=== PATIENT | male | born 1955 | race Caucasian/White ===

== ENCOUNTER 2023-11-06 09:51 | Outpatient (OUT) | payer MEDICARE, SELFPAY ==
--- NOTE | 2023-11-06 10:40 | P.GSHP_ITS ---
History of Present Illness History of Present Illness Chief complaint: LEFT KIDNEY STONE Narrative: Patient presents for preadmission testing. The patient states he has a long history of kidney stones and had a follow-up recently with a KUB that demonstrated a left-sided stone. He states he is virtually having no symptoms related to the stone. He has not had any dysuria, hematuria, flank pain, abdominal pain, nausea, vomiting or any other complaints. Review of Systems ROS Narrative REVIEW OF SYSTEMS: Negative except as stated in HPI, ten or more systems reviewed. Constitutional: No fever, chills, weakness ENT: No sore throat or epistaxis Cardiovascular: No edema, chest pain, palpitations, or activity intolerance Respiratory: No shortness of breath, cough, or wheezing Musculoskeletal: No joint pain or swelling Gastrointestinal: No abdominal pain, constipation, diarrhea, or vomiting Genitourinary: No dysuria or hematuria Neurological: No numbness, tingling, weakness, or headache Psychiatric: No mood changes PFSH PFS Medical History (Updated 11/06/23 @ 10:23 by Rosalia Ojeda NP) Postoperative nausea and vomiting ?R11.2 - Nausea with vomiting, unspecified (ICD-10) ?Z98.890 - Other specified postprocedural states (ICD-10) S/P extracorporeal shock wave therapy ?Z98.890 - Other specified postprocedural states (ICD-10) Lipoma ?D17.9 - Benign lipomatous neoplasm, unspecified (ICD-10) Elevated PSA ?R97.20 - Elevated prostate specific antigen [PSA] (ICD-10) Bulbous urethral stricture ?N35.912 - Unspecified bulbous urethral stricture, male (ICD-10) Gross hematuria ?R31.0 - Gross hematuria (ICD-10) Tremor ?R25.1 - Tremor, unspecified (ICD-10) Eczema ?L30.9 - Dermatitis, unspecified (ICD-10) Kidney stones ?N20.0 - Calculus of kidney (ICD-10) BPH with obstruction/lower urinary tract symptoms ?N40.1 - Benign prostatic hyperplasia with lower urinary tract symptoms (ICD- 10) ?N13.8 - Other obstructive and reflux uropathy (ICD-10) Surgical History (Updated 11/06/23 @ 10:16 by Rosalia Ojeda NP) H/O colonoscopy ?Z98.890 - Other specified postprocedural states (ICD-10) S/P TURP ?Z90.79 - Acquired absence of other genital organ(s) (ICD-10) H/O lithotripsy ?Z98.890 - Other specified postprocedural states (ICD-10) History of removal of ureteral stent ?Z98.890 - Other specified postprocedural states (ICD-10) H/O inguinal hernia repair ?Z98.890 - Other specified postprocedural states (ICD-10) ?Z87.19 - Personal history of other diseases of the digestive system (ICD-10) S/P ureteral stent placement ?Z96.0 - Presence of urogenital implants (ICD-10) H/O cystoscopy ?Z98.890 - Other specified postprocedural states (ICD-10) H/O prostate biopsy ?Z98.890 - Other specified postprocedural states (ICD-10) Family History (Updated 11/06/23 @ 10:23 by Rosalia Ojeda NP) Other Family history of heart disease Family history of hypertension Social History (Updated 11/06/23 @ 10:20 by Rosalia Ojeda NP) Within the past year, how often did you have a drink containing alcohol: never Score interpretation: A score less than 4 is consistent with normal alcohol consumption. Smoking status: Never smoker Non-prescribed substance use: denies use Previous occupational history: [employer] Highest level of school completed/degree received: high school graduate Meds Home Medications and Allergies Home Medications ?Medication ?Instructions ?Recorded ?Confirmed ?Type potassium bicarbonate-citric acid 20 meq PO DAILY 11/06/23 11/06/23 History 20 mEq effervescent tablet (Effer-K) tadalafil 20 mg tablet 20 mg PO QDAY PRN sexual activity 11/06/23 11/06/23 History Allergies Allergy/AdvReac Type Severity Reaction Status Date / Time No Known Drug Allergies Allergy Verified 11/06/23 10:18 Exam Narrative Exam Narrative: Constitutional: Awake, alert, comfortable, well-appearing, nontoxic, interactive, vital signs as charted Head: Normocephalic, atraumatic Neck: Supple, normal appearance, normal range of motion, no meningeal signs, no lymphadenopathy Respiratory: No respiratory distress, breath sounds clear Cardiovascular: Regular rate and rhythm, strong and regular heart tones Abdomen: Nontender, normal bowel sounds, soft, no CVA tenderness Musculoskeletal: Normal gait, no swelling or edema Skin: No rashes or induration, no lesions, only visible skin inspected Neuro: No neurological deficits, normal sensation Psychiatric: Oriented ?3, normal affect Assessment and Plan Assessment and Plan (1) Kidney stones: Plan Left ESWL Scheduled with Dr. Cortez November 16, 2023.
[2023-11-06 10:44] LABS: Eosinophils Absolute Auto 0.2 10^3/uL (0.0-0.7); Eosinophils Percent Auto 3.6 % (0.9-7.0); Hematocrit 44.3 % (42.0-54.0); Hemoglobin 15.1 g/dL (14.0-18.0); Lymphocytes Absolute Auto 0.9 10^3/uL (1.2-3.8); Lymphocytes Percent Auto 21.7 % (20.5-60.0); Mean Corpuscular HGB Conc 34.1 g/dL (29.9-35.2); Mean Corpuscular Hemoglobin 30.9 pg (25.9-34.0); Mean Corpuscular Volume 90.6 fL (80.0-94.0); Monocytes Absolute Auto 0.4 10^3/uL (0.3-0.8); Monocytes Percent Auto 10.5 % (1.7-12.0); Neutrophils Absolute Auto 2.6 10^3/uL (1.4-6.5); Neutrophils Percent Auto 63.2 % (43.0-75.0); Platelet Count 173 10^3/uL (150-450); Red Blood Count 4.89 10^6/uL (4.70-6.10); Red Cell Distribution Width 12.8 % (11.0-15.0); White Blood Count 4.1 10^3/uL (4.0-11.0)
[2023-11-06 11:04] LABS: Anion Gap 11.4; BUN Creatinine Ratio 19.8; Carbon Dioxide 29.1 mmol/L (21.0-32.0); Chloride 106 mmol/L (98-107); Estimated GFR (African America >60 (>=60); Estimated GFR (Non-African Ame >60 (>=60); Glucose 93 mg/dL (74-106); Potassium 4.5 mmol/L (3.5-5.1); Sodium 142 mmol/L (136-145)
[2023-11-06 11:07] LABS: INR 1.01; Partial Thromboplastin Time 27.6 sec (22.3-36.2); Prothrombin Time 10.7 sec (9.0-11.6)
== END 2023-11-06 09:52 | disposition home or self-care (01) ==
LOC: PST 09:56
PROVIDERS: PCP Internal Medicine; Visit Provider Urology
DX: Z01.812 Encounter for preprocedural laboratory examination (principal); Z01.818 Encounter for other preprocedural examination; N20.0 Calculus of kidney
CPT/HCPCS: 80048; 85025; 85610; 85730; G0463

== ENCOUNTER 2023-11-16 07:22 | Day surgery (SDC) | payer MEDICARE, SELFPAY ==
[2023-11-06 10:37] VITALS: BP 137/63; PULSE 51; TEMP 36.4; O2SAT 97; BMI 23.0
[2023-11-16] VITALS (12 sets, daily range): BP systolic 104–135; BP diastolic 61–82; PULSE 39–70; TEMP 36.2–36.4; O2SAT 94–99; BMI 21.9
--- NOTE | 2023-11-16 07:30 | XR_ITS ---
The [address] [address] Patient Name: RAJANI SCALES MRN: [id number] date: 1955 Sex: M Assigned Patient Location: [facility] [place] Current Patient Location: [facility] [place] Accession/Order Number: [id number] Exam Date: 11/16/2023 07:28 Report Date: 11/16/2023 07:49 At the request of: JOHANN WILSON Procedure: XR abdomen 1V EXAMINATION: XR abdomen 1V HISTORY: kidney stones COMPARISON: XR KUB 11/17/2021 FINDINGS: KIDNEY/URETER - RIGHT: No visible renal or ureteral calcifications. KIDNEY/URETER - LEFT: 8 cm calcification projecting over inferior pole of kidney. PELVIS: No appreciable ureteral stones. Stable pelvic calcifications compatible with phleboliths. BOWEL: No abnormal dilation or deviation. BONES: No acute abnormality. OTHER: Negative. No abnormal gaseous collections. XR/XR abdomen 1V IMPRESSION: 1. Left nephrolithiasis. Electronically authenticated by: RAYNA KIRAN Date: 11/16/2023 07:49
[2023-11-16] MEDS: LACTATED RINGER'S SOLUTION 1,000 ML 50 ML IV (07:54)
[2023-11-16] MEDS: CEFAZOLIN SODIUM/DEXTROSE,ISO 1 GM/50 ML IV.SOLN IV (09:09)
--- NOTE | 2023-11-16 09:44 | PM.URSON ---
Urology Surgery Operative Note Operative Note Procedure Date: 11/16/23 Time Out Performed: yes Pre-op Diagnosis: Left nephrolithiasis Post-op Diagnosis: same as pre-op Procedures performed: 1. Left ESWL. Anesthesia: MAC Primary Surgeon: Nomi Cortez Complications: None Estimated blood loss (mL): 0 Findings: Left renal calculus Specimens: None Drains: None Indications for Procedures: This gentleman has an 8 mm left nonobstructing renal calculus. He now presents for left ESWL. He has signed an informed consent after risks were explained. Some of these risks include bleeding, perinephric hematoma, infection and anesthesia to name a few. Detailed description of Procedure: The patient was brought to the Operating Room and placed on Siemens electromagnetic lithotripsy treatment table in the supine position. SCDs were placed on their lower extremities and turned on and functioning during the entire case. Timeout was done by all parties in the room. We all agreed upon the patient's identification and the planned procedures for this patient. A deep MAC anesthetic was then administered so as to create a functional general anesthetic. Treatment head was then brought to the patient's correct side. While using flourscopy the left sided stone was identified and lined up into the crosshairs. We then began applying shocks. We started at power level 2.0 and went to a maximum power level of 3.2. Intermittent fluoroscopy revealed that the stone was fragmenting very well. We applied a total of 2500 shocks. Our last fluoroscopic image revealed no evidence of formed stone remaining. The procedure was then terminated. He was then transferred to a [facility] bed and wheeled to PACU in stable condition.
== END 2023-11-16 11:50 | disposition home or self-care (01) ==
PROVIDERS: PCP Internal Medicine; Visit Provider Urology
PROC: (CPT 50590; principal; 2023-11-16 08:45)
DX: N20.0 Calculus of kidney (principal); R31.0 Gross hematuria; N40.1 Benign prostatic hyperplasia with lower urinary tract symptoms; R97.20 Elevated prostate specific antigen [PSA]; Z87.442 Personal history of urinary calculi; N52.9 Male erectile dysfunction, unspecified
CPT/HCPCS: 50590; 36415; 74018; J0690; J1100; J2405; J2704; J3010

== ENCOUNTER 2024-12-16 12:49 | Outpatient (OUT) | payer MEDICARE, SELFPAY ==
--- OUTSIDE RECORDS SUMMARY | 2024-12-02 23:59 | XMS_ITS | Continuity of Care Document ---
Author Organization [facility] Address [address] [place] [address] Care Team Providers Care Application Development Specialist Name Role Phone Rell HAYES Primary Care Physician Encounter FT_AMBFIN [id number] Date(s): 12/02/24 - 12/02/24 [facility] [address] [address]- [place] Encounter Diagnosis Kidney stones(Discharge Diagnosis) - 12/02/24 ED (erectile dysfunction)(Discharge Diagnosis) - 12/02/24 Elevated PSA(Discharge Diagnosis) - 12/02/24 BPH with urinary obstruction(Discharge Diagnosis) - 12/02/24 Gross hematuria(Discharge Diagnosis) - 12/02/24 Discharge Disposition: Home (Routine DC) Attending Physician: Nomi WILSON MD Encounter Type: Clinic Allergies, Adverse Reactions, Alerts No Known Allergies Assessment and Plan Future Appointments Appointment Date:12/18/2024 01:00:00 PM Scheduled Provider:Rell HAYES MD Location:[facility] Appointment Type:FM Open Appointment Date:02/26/2025 10:00:00 AM Scheduled Provider:Rell HAYES MD Location:[facility] Appointment Type: Preventative Visit Appointment Date:09/15/2025 01:00:00 PM Scheduled Provider: Location:[facility] Appointment Type: Medicare Wellness Subsequent Future Scheduled Tests Laboratory* HCV Antibody RFX to Quant PCR 09/16/24 Immunizations Given and Recorded Vaccine Date Status Refusal Reason influenza virus vaccine, inactivated 02/26/24 Give n influenza virus vaccine, inactivated 03/01/23 Give n influenza virus vaccine, inactivated 01/26/22 Give n influenza virus vaccine, inactivated 02/20/20 Won rded SARS-CoV-2 (COVID-19) [id number] 02/03/22 Recorded SARS-CoV-2 mRNA (tozinameran 5y-11y) vac 08/14/21 Recorded SARS-CoV-2 mRNA (tozinameran 5y-11y) vac 01/31/21 Recorded SARS-CoV-2 (COVID-19) mRNA BNT-162b2 vax 2 07/23/20 Given SARS-CoV-2 (COVID-19) mRNA BNT-162b2 vax 3 06/25/20 Given pneumococcal 13-valent vaccine 02/20/20 Recorded Not Given Vaccine Date Status Refusal Reason influenza virus vaccine, inactivated 1 02/13/23 Not Given Refused by parent, g uardian, or patient - reschedule influenza virus vaccine, inactivated 01/13/21 Not Given Patient Refuses influenza virus vaccine, inactivated 10/16/18 Not Given Refused by parent, g uardian, or patient - reschedule 1Reason for Medication: Prophylaxis 2Reason for Medication: Prophylaxis 3Result Comment: will get at pharmacy Medications Aleve 220 mg, Oral, q12hr, PRN as needed for pain, Refills(s) 0 Start Date: 03/01/23 Status: Ordered Repeat number: 1 Effer-K 20 mEq oral tablet, effervescent 20 mEq = 1 tab(s), Oral, BID, # 60 tab(s), Refills(s) 11, Pharmacy: [id number], 185.5, cm, 08/30/23 11:51:00 EDT, Height/Length Dosing, 75.7, kg, 08/30/23 11:51:00 EDT, Weight Dosing Start Date: 12/12/23 Status: Ordered Quantity: 60.0 Unit: tab(s) Repeat number: 12 tadalafil 20 mg Tab 20 mg = 1 tab(s), Oral, As Directed, Take 30 minutes prior to sexual relations as needed. Do not exceed 20mg in 24 Hours, # 30 tab(s), Refills(s) 5, Pharmacy: [email or web address], 185.5, cm, 08/30/23 11:51:00 EDT, Height/Length Dosing, 75.7, kg, 08/30/23 11:51:00 EDT, Weight Dosing Start Date: 12/12/23 Status: Ordered Quantity: 30.0 Unit: tab(s) Repeat number: 6 tamsulosin 0.4 mg Cap 0.4 mg = 1 cap(s), Oral, Daily, # 30 cap(s), Refills(s) 11, Pharmacy: [email or web address], 185.5, cm, 12/02/24 13:49:00 EDT, Height/Length Dosing, 75.9, kg, 12/02/24 13:49:00 EDT, Weight Dosing Start Date: 12/02/24 Status: Ordered Quantity: 30.0 Unit: cap(s) Repeat number: 12 Indications: Benign prostatic hyperplasia with lower urinary tract symptoms; Problem List Condition Confirmation Course Effective Dates Status H ealth Status Informant BPH with urinary obstruction Confirmed Active Chest pain Confirmed Active Eczema Confirmed Active Elevated PSA Confirmed Active ED (erectile dysfunction) Confirmed Active Tremor of left hand Confirmed Active Gross hematuria Confirmed Active History of kidney stones Confirmed Active Elevated blood pressure reading Confirmed Active Inguinal hernia 1 Confirmed Active Kidney stones Confirmed Active Lipoma of back Confirmed Active Screen for colon cancer Confirmed Active Screening for cardiovascular condition Confirmed Active Enlarged prostate Confirmed Active Bulbous urethral stricture Confirmed Active 1left Procedures Procedure Date Related Diagnosis Body Site Status MRI-US fusion guided transre ctal biopsy of prostate 12/06/22 Completed Cystoscopic removal of ureteric stent 09/20/22 Completed Cystoscopic removal of ureteric stent 09/01/22 Completed Left inguinal hernia repair with mesh plug 11/08/16 Completed Lithotripsy 2016 Completed Lt. ESWL (extracorporeal jaya ckwave lithotripsy) of ureteric calculus 04/07/16 Completed Urodynamics 09/16/15 Completed Cystoscope 09/01/15 Completed TURP - Redo transurethral re section of prostate 2015 Completed Transrectal biopsy of prosta te using ultrasound (US) guidance 03/29/11 [facility] ed Colonoscopy Completed Cystoscopic insertion of ure teric stent/ in [place] Completed Social History Social History Type Response Smoking Status Never (less than 100 in lifetime);Never 1, 2 entered on: 12/02/24 Sex Male Sex Representation Male (finding) 1denies use 2denies Hospital Discharge Instructions Patient Education 12/02/2024 14:47:25 ESWL for Kidney Stones, Care After ESWL for Kidney Stones, Care After The following information offers guidance on how to care for yourself after your procedure. Your health care provider may also give you more specific instructions. If you have problems or questions, contact your health care provider. What can I expect after the procedure? After the procedure, it is common to have: ??? Some blood in your urine. This should only last for a few days. ??? Soreness in your back, sides, or upper abdomen for a few days. ??? Blotches or bruises on the area where the shock wave entered the skin. ??? Pain, discomfort, or nausea when pieces (fragments) of the kidney stone move through the tube that carries urine from the kidney to the bladder (ureter). Fragments may pass soon after the procedure. They may also take up to 4???8 weeks to pass. ??? If you have severe pain or nausea, contact your health care provider. This may be caused by a large stone that was not broken up enough. This may mean that you need more treatment. ??? Some pain or discomfort during urination. ??? Some pain or discomfort in the lower abdomen or at the base of the penis. Follow these instructions at home: Medicines ??? Take sjtj-pwn-lknshlw and prescription medicines only as told by your health care provider. ??? If you were prescribed antibiotics, take them as told by your health care provider. Do not stopusing the antibiotic even if you start to feel better. ??? Ask your health care provider if the medicine prescribed to you: ??? Requires you to avoid driving or using machinery. ??? Can cause constipation. You may need to take these actions to prevent or treat constipation: ??? Take xapu-jqq-gasdbnk or prescription medicines. ??? Eat foods that are high in fiber, such as beans, whole grains, and fresh fruits and vegetables. ??? Limit foods that are high in fat and processed sugars, such as fried or sweet foods. Eating and drinking ??? Follow instructions from your health care provider about what you may eat and drink. You may betold to: ??? Reduce how much salt (sodium) you eat or drink. Check ingredients and nutrition facts on packaged foods and drinks to see how much sodium they contain. ??? Reduce how much meat you eat. ??? Drink enough fluid to keep your urine pale yellow. This can help you pass any pieces of the stone that are left. It can also prevent new stones from forming. ??? Eat plenty of fresh fruits and vegetables. ??? Eat the recommended amount of calcium for your age and gender. Ask your health care provider how much calcium you should have. Activity ??? Get plenty of rest as told by your health care provider. ??? Avoid sitting for a long time without moving. Get up to take short walks every 1???2 hours. This is important to improve blood flow and breathing. Ask for help if you feel weak or unsteady. ??? Your health care provider may tell you to lie in a certain position (postural drainage) and tapfirmly (percuss) over your kidney area to help stone fragments pass. Follow instructions as told byyour health care provider. ??? Return to your normal activities as told by your health care provider. Ask your health care provider what activities are safe for you. Most people can resume normal activities 1???2 days after the procedure. General instructions ??? If told, strain all urine through the strainer that was provided by your health care provider. ??? Keep all fragments for your health care provider to see. Any stones that are found may be sent to a medical lab for examination. The stone may be as small as a grain of salt. ??? Keep all follow-up visits. This is important if you had a stent placed because it may need to stay in place for a few weeks. Ask your health care provider when the stent will be removed. Contact a health care provider if: ??? You have a fever or chills. ??? You have severe nausea that leads to persistent vomiting. ??? You have any of these urinary symptoms: ??? Increased blood or blood clots in the urine. ??? Urine that smells bad or unusual. ??? A strong urge to urinate after emptying your bladder. ??? Pain or burning with urination that does not go away. ??? A continued need to urinate more often than usual. ??? You have a stent, and it comes out. Get help right away if: ??? You have severe pain in your back, sides, or upper abdomen. ??? You faint. ??? You have any of these urinary symptoms: ??? Severe pain while urinating. ??? More blood in your urine, or blood in your urine when you did not have any before. ??? Blood clots in your urine larger than 1 inch (2.5 cm) in size. ??? You pass only a small amount of urine when you urinate or are unable to pass any urine. This information is not intended to replace advice given to you by your health care provider. Make sure you discuss any questions you have with your health care provider. Document Revised: 08/18/2022 Document Reviewed: 08/18/2022 [employer] Patient Education ?? 2023 [employer]. 12/02/2024 14:47:25 ESWL for Kidney Stones ESWL for Kidney Stones Extracorporeal shock wave lithotripsy (ESWL) is a treatment that can help break up kidney stones that are too large to pass on their own. This is a nonsurgical procedure that breaks up a kidney stone with shock waves. These shock waves pass through your body and focus on the kidney stone. They cause the kidney stone to break into smaller pieces (fragments) while it is still in the urinary tract. The fragments of stone can pass more easily out of your body in the urine. Tell a health care provider about: ??? Any allergies you have. ??? All medicines you are taking, including vitamins, herbs, eye drops, creams, and xuui-ggy-sztbpem medicines. ??? Any problems you or family members have had with anesthetic medicines. ??? Any bleeding problems you have. ??? Any surgeries you have had. ??? Any medical conditions you have. ??? Whether you are or may be . What are the risks? Your health care provider will talk with you about risks. These may include: ??? Infection. ??? Bleeding from the kidney. ??? Bruising of the kidney or skin. ??? Scarring of the kidney. This can lead to: ??? Increased blood pressure. ??? Poor kidney function. ??? Return (recurrence) of kidney stones. ??? Damage to other structures or organs. This may include the liver, colon, spleen, or pancreas. ??? Blockage (obstruction) of the tube that carries urine from the kidney to the bladder (ureter). ??? Failure of the kidney stone to break into fragments. What happens before the procedure? When to stop eating and drinking Follow instructions from your health care provider about what you may eat and drink. These may include: ??? 8 hours before your procedure ??? Stop eating most foods. Do not eat meat, fried foods, or fatty foods. ??? Eat only light foods, such as toast or crackers. ??? All liquids are okay except energy drinks and alcohol. ??? 6 hours before your procedure ??? Stop eating. ??? Drink only clear liquids, such as water, clear fruit juice, black coffee, plain tea, and sportsdrinks. ??? Do not drink energy drinks or alcohol. ??? 2 hours before your procedure ??? Stop drinking all liquids. ??? You may be allowed to take medicines with small sips of water. If you do not follow your health care provider's instructions, your procedure may be delayed or canceled. Medicines Ask your health care provider about: ??? Changing or stopping your regular medicines. These include any diabetes medicines or blood thinners you take. ??? Taking medicines such as aspirin and ibuprofen. These medicines can thin your blood. Do not take them unless your health care provider tells you to. ??? Taking flft-ygc-ihwwotq medicines, vitamins, herbs, and supplements. Tests You may have tests, such as: ??? Blood tests. ??? Urine tests. ??? Imaging tests. This may include a CT scan. Surgery safety Ask your health care provider: ??? How your surgery site will be marked. ??? What steps will be taken to help prevent infection. These steps may include: ??? Washing skin with a soap that kills germs. ??? Receiving antibiotics. General instructions ??? If you will be going home right after the procedure, plan to have a responsible adult: ??? Take you home from the hospital or clinic. You will not be allowed to drive. ??? Care for you for the time you are told. What happens during the procedure? An IV will be inserted into one of your veins. ??? You may be given: ??? A sedative. This helps you relax. ??? Anesthesia. This will: ??? Numb certain areas of your body. ??? Make you fall asleep for surgery. ??? A water-filled cushion may be placed behind your kidney or on your abdomen. In some cases, you may be placed in a tub of lukewarm water. ??? Your body will be positioned in a way that makes it easier to target the kidney stone. ??? An X-ray or ultrasound exam will be done to locate your stone. ??? Shock waves will be aimed at the stone. If you are awake, you may feel a tapping sensation as the shock waves pass through your body. ??? A small mesh tube (stent) may be placed in your ureter. This will help keep urine flowing from the kidney if the fragments of the stone have been blocking the ureter. The stent will be removed parish later time by your health care provider. The procedure may vary among health care providers and hospitals. What happens after the procedure? Your blood pressure, heart rate, breathing rate, and blood oxygen level will be monitored untilyou leave the hospital or clinic. ??? You may have an X-ray after the procedure to see how many of the kidney stones were broken up. This will also show how much of the stone has passed. If there are still large fragments after treatment, you may need to have a second procedure at a later time. This information is not intended to replace advice given to you by your health care provider. Make sure you discuss any questions you have with your health care provider. Document Revised: 08/18/2022 Document Reviewed: 08/18/2022 [employer] Patient Education ?? 2023 [employer] 12/02/2024 14:45:22 Cystoscopy Cystoscopy Cystoscopy is a procedure that is used to help diagnose and sometimes treat conditions that affect the lower urinary tract. The lower urinary tract includes the bladder and the urethra. The urethra is the tube that drains urine from the bladder. Cystoscopy is done using a thin, tube-shaped instrument with a light and camera at the end (cystoscope). The cystoscope may be hard or flexible, depending on the goal of the procedure. The cystoscope is inserted through the urethra, into the bladder. Cystoscopy may be recommended if you have: ??? Urinary tract infections that keep coming back. ??? Blood in the urine (hematuria). ??? An inability to control when you urinate (urinary incontinence) or an overactive bladder. ??? Unusual cells found in a urine sample. ??? A blockage in the urethra, such as a urinary stone. ??? Painful urination. ??? An abnormality in the bladder found during an intravenous pyelogram (IVP) or CT scan. Cystoscopy may also be done to remove a sample of tissue to be examined under a microscope (biopsy). Tell a health care provider about: ??? Any allergies you have. ??? All medicines you are taking, including vitamins, herbs, eye drops, creams, and iobb-dqj-dcljkts medicines. ??? Any problems you or family members have had with anesthetic medicines. ??? Any blood disorders you have. ??? Any surgeries you have had. ??? Any medical conditions you have. ??? Whether you are or may be . What are the risks? Generally, this is a safe procedure. However, problems may occur, including: ??? Infection. ??? Bleeding. ??? Allergic reactions to medicines. ??? Damage to other structures or organs. What happens before the procedure? Medicines Ask your health care provider about: ??? Changing or stopping your regular medicines. This is especially important if you are taking diabetes medicines or blood thinners. ??? Taking medicines such as aspirin and ibuprofen. These medicines can thin your blood. Do not take these medicines unless your health care provider tells you to take them. ??? Taking smpe-jva-ivpflvf medicines, vitamins, herbs, and supplements. Tests You may have an exam or testing, such as: ??? X-rays of the bladder, urethra, or kidneys. ??? CT scan of the abdomen or pelvis. ??? Urine tests to check for signs of infection. General instructions ??? Follow instructions from your health care provider about eating or drinking restrictions. ??? Ask your health care provider what steps will be taken to help prevent infection. These steps may include: ??? Washing skin with a germ-killing soap. ??? Taking antibiotic medicine. ??? Plan to have a responsible adult take you home from the hospital or clinic. What happens during the procedure? You will be given one or more of the following: ??? A medicine to help you relax (sedative). ??? A medicine to numb the area (local anesthetic). ??? The area around the opening of your urethra will be cleaned. ??? The cystoscope will be passed through your urethra into your bladder. ??? Germ-free (sterile) fluid will flow through the cystoscope to fill your bladder. The fluid willstretch your bladder so that your health care provider can clearly examine your bladder lee. ??? Your doctor will look at the urethra and bladder. Your doctor may take a biopsy or remove stones. ??? The cystoscope will be removed, and your bladder will be emptied. The procedure may vary among health care providers and hospitals. What can I expect after the procedure? After the procedure, it is common to have: ??? Some soreness or pain in your abdomen and urethra. ??? Urinary symptoms. These include: ??? Mild pain or burning when you urinate. Pain should stop within a few minutes after you urinate.This may last for up to 1 week. ??? A small amount of blood in your urine for several days. ??? Feeling like you need to urinate but producing only a small amount of urine. Follow these instructions at home: Medicines ??? Take eojd-jij-uoftohn and prescription medicines only as told by your health care provider. ??? If you were prescribed an antibiotic medicine, take it as told by your health care provider. Donot stop taking the antibiotic even if you start to feel better. General instructions ??? Return to your normal activities as told by your health care provider. Ask your health care provider what activities are safe for you. ??? If you were given a sedative during the procedure, it can affect you for several hours. Do not drive or operate machinery until your health care provider says that it is safe. ??? Watch for any blood in your urine. If the amount of blood in your urine increases, call your health care provider. ??? Follow instructions from your health care provider about eating or drinking restrictions. ??? If a tissue sample was removed for testing (biopsy) during your procedure, it is up to you to get your test results. Ask your health care provider, or the department that is doing the test, when your results will be ready. ??? Drink enough fluid to keep your urine pale yellow. ??? Keep all follow-up visits. This is important. Contact a health care provider if: ??? You have pain that gets worse or does not get better with medicine, especially pain when you urinate. ??? You have trouble urinating. ??? You have more blood in your urine. Get help right away if: ??? You have blood clots in your urine. ??? You have abdominal pain. ??? You have a fever or chills. ??? You are unable to urinate. Summary ??? Cystoscopy is a procedure that is used to help diagnose and sometimes treat conditions that affect the lower urinary tract. ??? Cystoscopy is done using a thin, tube-shaped instrument with a light and camera at the end. ??? After the procedure, it is common to have some soreness or pain in your abdomen and urethra. ??? Watch for any blood in your urine. If the amount of blood in your urine increases, call your health care provider. ??? If you were prescribed an antibiotic medicine, take it as told by your health care provider. Donot stop taking the antibiotic even if you start to feel better. This information is not intended to replace advice given to you by your health care provider. Make sure you discuss any questions you have with your health care provider. Document Revised: 12/29/2021 Document Reviewed: 11/27/2020 [employer] Patient Education ?? 2023 [employer]. Follow Up Care 10/14/2024 09:53:34 With:KATIE GOEL, Nomi Manzanares, URL Address: [facility] [address], [place] [address]- [phone] When: Unknown Comments:sched??cysto/ESWL Patient Care team information Care Team Personnel Name: Rell HAYES MD Position: Ambulatory - Primary Care Provider? Member Role: Primary Care Physician Address: [facility] [address], [address] [place], [place] [address] [place]: Name: SHEELA DURAN Position: FT Physician Member Role: Flight Attendant [employer] Address: [address] [place] [address] [place] Tele[employer]: Name: Nomi WILSON MD Position: FT Ambulatory - Urology Provider Member Role: Urologist Address: [address] [place] [address]- Telecom: Name: Trace Fu Position: FT DBC: [employer] Member Role: [employer]: Claims Followup Rep (Water Safety Instructor) Care Team Related Persons Name: YORDY ZINA Name: ZINA SCALES Name: ZINA SCALES Name: ZINA SCALES Name: ZINA SCALES Insurance Providers Guarantor name: RAJANI Anthony SCALES Health Plan Information #: 1 Payer: NA Payer Identifier: [id number] Member Number: [id number] Group Number: [id number] Subscriber Identifier: [id number] Relationship to Subscriber: Self Coverage Type: MEDICARE Coverage Verification Date: 24 Telecom: NA Address: Health Plan Information #: 2 Payer: NA Payer Identifier: [id number] Member Number: [id number] Group Number: [id number] Subscriber Identifier: [id number] Relationship to Subscriber: Self Coverage Type: PRIVATE HEALTH INSURANCE Coverage Verification Date: 24 Telecom: Address:
--- OUTSIDE RECORDS SUMMARY | 2024-12-16 12:53 | XMS_ITS | Encounter Summary ---
Author Organization [facility] Address [address] [place] [address] Phone Care Team Providers Care Hoop Punch And Coiler Operator Name Role Phone Arelis Tomlin Primary Care Provider Encounter Details Date Type Department Care Team (Late st Contact Info) Description 10/28/2020 Orders Only [facility] LE[facility] [address] [place] [address] Conversion, Onbase Social History Tobacco Use Types Packs/Day Years Used Date Smoking Tobacco: Never Assessed Sex and Gender Information Value Date Recorded Sex Assigned at Not on file Legal Sex Male 5:21 PM EST Gender Identity Not on file Sexual Orientation Not on file documented as of this encounter Plan of Treatment Scheduled Orders Name Type Priority Associated Diagnoses Orde r Schedule OUTSIDE LAB SCAN Lab Ordered: 10/28/2020 documented as of this encounter Visit Diagnoses Not on filedocumented in this encounter Care Teams Hoop Punch And Coiler Operator Relationship Specialty Start Date End Date Arelis Tomlin APRN-CNP [address] [place] [facility] Pulmonary Medicine- [facility] 4 [facility] [place] [address] PCP - General 10/07/20 documented as of this encounter
--- OUTSIDE RECORDS SUMMARY | 2024-12-16 12:53 | XMS_ITS | Clinical Summary ---
Author Organization [facility] Address [address] [place] [address] Phone Care Team Providers Care Right Of Way Buyer Name Role Phone Arelis Tomlin Primary Care Provider Social History Tobacco Use Types Packs/Day Years Used Date Smoking Tobacco: Never Assessed Sex and Gender Information Value Date Recorded Sex Assigned at Not on file Legal Sex Male 5:21 PM EST Gender Identity Not on file Sexual Orientation Not on file Last Filed Vital Signs Vital Sign Reading Time Taken Comments Blood Pressure 137/69 12/23/2020 9:36 AM EDT Pulse 92 12/23/2020 9:36 AM EDT Temperature 35.6 C (96 F) 01/06/2021 2:08 PM EDT Respiratory Rate 18 12/23/2020 9:36 AM EDT Oxygen Saturation - - Inhaled Oxygen Concentration - - Weight 74.9 kg (165 lb 1.6 oz) 01/06/2021 2:08 P M EDT Height 185.4 cm (6' 1 ) 01/06/2021 2:08 PM EDT Body Mass Index 21.78 01/06/2021 2:08 PM EDT Plan of Treatment Not on file Care Teams Right Of Way Buyer Relationship Specialty Start Date End Date Arelis Tmolin APRN-CNP [address] [place] [facility] Pulmonary Medicine- [address] [address] PCP - General 10/07/20
--- OUTSIDE RECORDS SUMMARY | 2024-12-16 12:53 | XMS_ITS | Encounter Summary ---
Author Organization [facility] Address [address] [place] [address] Phone Care Team Providers Care Junior Data Analyst Name Role Phone Arelis Tomlin Primary Care Provider Encounter Details Date Type Department Care Team (Late st Contact Info) Description 09/09/2019 Orders Only [facility] [address] [place] [address] Conversion, Onbase Social History Tobacco Use Types Packs/Day Years Used Date Smoking Tobacco: Never Assessed Sex and Gender Information Value Date Recorded Sex Assigned at Not on file Legal Sex Male 5:21 PM EST Gender Identity Not on file Sexual Orientation Not on file documented as of this encounter Plan of Treatment Scheduled Orders Name Type Priority Associated Diagnoses Orde r Schedule AUDIOLOGY REPORT - ONBASE SCAN Audiology Ordered: 020 documented as of this encounter Visit Diagnoses Not on filedocumented in this encounter Care Teams Junior Data Analyst Relationship Specialty Start Date End Date Arelis Tomlin APRN-CNP [address] [place] Primary [facility] and Pulmonary Medicine- [facility] [address] [place] [address] PCP - General 10/07/20 documented as of this encounter
--- OUTSIDE RECORDS SUMMARY | 2024-12-16 12:53 | XMS_ITS | Clinical Summary ---
Author Organization [facility] Address [address] [place], [place] [address] Care Team Providers Care Plater Production Name Role Phone Rell Laws MD Primary Care Provider [phone] Medications Tadalafil (CIALIS) 20 mg tablet Take 20 mg by mouth. 01/27/2023 Active EFFER-K 20 mEq tbef take 1 tablet MIXED IN LIQUID by mouth twice a day Active Social History Tobacco Use Types Packs/Day Years Used Date Smoking Tobacco: Never Smokeless Tobacco: Never Tobacco Cessation:Counseling Given: Not Answered Alcohol Use Standard Drinks/Week Comments Never 0 (1 standard drink = 0.6 oz pur e alcohol) Area Deprivation Index Answer Date Won rded National Score (1-100), lower number is lower ri sk 87 10/10/2023 State Score (1-10), lower number is lower risk 8 10/10/2023 Data from: https://www.neighborhoodatlas.medicine.[facility].edu/. Last address used for calculation [address] [place] [address] 10/10/2023 Sex and Gender Information Value Date Recorded Sex Assigned at Not on file Legal Sex Male 2:06 PM EDT Gender Identity Not on file Sexual Orientation Not on file Last Filed Vital Signs Vital Sign Reading Time Taken Comments Blood Pressure 137/81 10/10/2023 12:47 PM EDT Pulse 57 10/10/2023 12:47 PM EDT Temperature 37 C (98.6 F) 10/10/2023 12:47 PM EDT Respiratory Rate - - Oxygen Saturation 99% 10/10/2023 12: 47 PM EDT Inhaled Oxygen Concentration - - Weight 75.7 kg (166 lb 12.5 oz) 024 12:47 PM EDT Height 184.6 cm (6' 0.68 ) 10/10/2023 1 2:47 PM EDT Body Mass Index 22.2 10/10/2023 12:47 PM EDT Plan of Treatment Health Maintenance Due Date Last Done Comments Anxiety Screening 1973 Depression Screening 1973 Hepatitis C Screening 1973 DTaP,Tdap,Td Vaccine (1 - Tdap) [address] Colonography 01/15/2000 Cologuard (FIT-DNA) 01/15/2000 Colonoscopy 01/15/2000 Colorectal Cancer Screening 01/15/2000 Diabetes Screening 01/15/2000 Fecal Occult Blood 01/15/2000 Sigmoidoscopy 01/15/2000 Shingrix Vaccine (1 of 2) 2005 Pneumococcal Vaccine: 50+ (2 of 2 - PCV20 or PCV21) 02/19/2021 02/20/2020 Advance Directive Discussion 05/01/2024 Influenza Vaccine (#1) 2024 3, 01/26/2022, 02/20/2020 RSV Vaccine (1 - 1-dose 75+ series) 2030 Insurance MEDICARE Care Teams Plater Production Relationship Specialty Start Date End Date Rell Laws MD PCP - General Internal Medicine 10/10/23
--- OUTSIDE RECORDS SUMMARY | 2024-12-16 12:53 | XMS_ITS | Encounter Summary ---
Author Organization [facility] Address [address] [place] [address] Phone Care Team Providers Care Juice Mixer Name Role Phone Arelis Tomlin Primary Care Provider Encounter Details Date Type Department Care Team (Late st Contact Info) Description 12/21/2020 Orders Only [facility] LE[facility] [address] [place] [address] Conversion, Onbase Social History Tobacco Use Types [...] r Schedule OUTSIDE LAB SCAN Lab Ordered: 12/21/2020 OUTSIDE LAB SCAN Lab Ordered: 12/21/2020 documented as of this encounter Visit Diagnoses Not on filedocumented in this encounter Care Teams Juice Mixer Relationship Specialty Start Date End Date Arelis Tomlin APRN-CNP [address] [place] [facility] and Pulmonary Medicine- [facility] 4 [facility] [place] [address] PCP - General 10/07/20 documented as of this encounter
--- OUTSIDE RECORDS SUMMARY | 2024-12-16 12:53 | XMS_ITS | Encounter Summary ---
Author Organization [facility] Address [address] [place] [address] Care Team Providers Care Appliance Service Representative Name Role Phone Rell Laws MD Primary Care Provider [phone] Encounter Details Date Type Department Care Team (Late st Contact Info) Description 12/19/2022 Abstract [facility] [address] [facility] [address] [place] [address] Amanda Santoyo MD [address] [facility] [address] [place] [address] Social History Tobacco Use Types Packs/Day Years Used Date Smoking Tobacco: Never Smokeless Tobacco: Never Alcohol Use Standard Drinks/Week Comments Never 0 (1 standard drink = 0.6 oz pur e alcohol) caffeine 1-2 cups per day; pop Sex and Gender Information Value Date Recorded Sex Assigned at Not on file Legal Sex Male 7:27 PM EDT Gender Identity Not on file Sexual Orientation Not on file documented as of this encounter Plan of Treatment Not on file documented as of this encounter Visit Diagnoses Not on filedocumented in this encounter Care Teams Appliance Service Representative Relationship Specialty Start Date End Date Rell Laws MD [address] [place] [address] PCP - General Internal Medicine 09/15/23 documented as of this encounter
--- NOTE | 2024-12-16 12:56 | ECG_ITS ---
[facility] Test Date: 2024-12-16 Pat Name: RAJANI SCALES Department: Room: - Gender: Male Supervisor Operations: : 1955 Requested By: JOHANN WILSON Order Number: [id number] Reading MD: LANE OVALLE M.D. Measurements Intervals [place] Rate: 54 P: 77 TX: 152 QRS: -16 QRSD: 90 T: 48 QT: 406 QTc: 387 Interpretive Statements SINUS BRADYCARDIA Borderline ECG Compared to ECG 08/24/2022 12:59:08 No significant changes Electronically Signed On 12-16-2024 17:50:[address] OVALLE M.D.
--- NOTE | 2024-12-16 13:31 | PM.PRESUREVA ---
History of Present Illness History of Present Illness Chief complaint: Hematuria, Left Kidney Stone Narrative: Patient presents for presurgical testing. Please see HPI from Dr. Cortez dated December 02, 2024. Review of Systems ROS Narrative Please see ROS from Dr. Cortez dated December 02, 2024. [facility] Medical History (Updated 11/06/23 @ 10:23 by Rosalia Ojeda NP) Postoperative nausea and vomiting ?R11.2 - Nausea with vomiting, unspecified (ICD-10) ?Z98.890 - Other specified postprocedural states (ICD-10) S/P extracorporeal shock wave therapy ?Z98.890 - Other specified postprocedural states (ICD-10) Lipoma ?D17.9 - Benign lipomatous neoplasm, unspecified (ICD-10) Elevated PSA ?R97.20 - Elevated prostate specific antigen [PSA] (ICD-10) Bulbous urethral stricture ?N35.912 - Unspecified bulbous urethral stricture, male (ICD-10) Gross hematuria ?R31.0 - Gross hematuria (ICD-10) Tremor ?R25.1 - Tremor, unspecified (ICD-10) Eczema ?L30.9 - Dermatitis, unspecified (ICD-10) Kidney stones ?N20.0 - Calculus of kidney (ICD-10) BPH with obstruction/lower urinary tract symptoms ?N40.1 - Benign prostatic hyperplasia with lower urinary tract symptoms (ICD-10) ?N13.8 - Other obstructive and reflux uropathy (ICD-10) Surgical History (Updated 12/12/24 @ 09:40 by Rosalia Ojeda NP) History of extracorporeal shockwave lithotripsy (ESWL) (11/16/23) ?Z98.890 - Other specified postprocedural states (ICD-10) H/O colonoscopy ?Z98.890 - Other specified postprocedural states (ICD-10) S/P TURP ?Z90.79 - Acquired absence of other genital organ(s) (ICD-10) H/O lithotripsy ?Z98.890 - Other specified postprocedural states (ICD-10) History of removal of ureteral stent ?Z98.890 - Other specified postprocedural states (ICD-10) H/O inguinal hernia repair ?Z98.890 - Other specified postprocedural states (ICD-10) ?Z87.19 - Personal history of other diseases of the digestive system (ICD-10) S/P ureteral stent placement ?Z96.0 - Presence of urogenital implants (ICD-10) H/O cystoscopy ?Z98.890 - Other specified postprocedural states (ICD-10) H/O prostate biopsy ?Z98.890 - Other specified postprocedural states (ICD-10) Family History (Updated 12/16/24 @ 13:13 by Rosalia Ojeda NP) Other Congestive heart failure (CHF) Family history of heart disease Family history of hypertension Social History (Updated 11/06/23 @ 10:20 by Rosalia Ojeda NP) Within the past year, how often did you have a drink containing alcohol: never Score interpretation: A score less than 4 is consistent with normal alcohol consumption. Smoking status: Never smoker Non-prescribed substance use: denies use Previous occupational history: [employer] Delive[employer] Highest level of school completed/degree received: high school graduate Meds Home Medications and Allergies Home Medications ?Medication ?Instructions ?Recorded ?Confirmed ?Type potassium bicarbonate-citric acid 20 meq PO DAILY 11/06/23 12/16/24 History 20 mEq effervescent tablet (Effer-K) tadalafil 20 mg tablet 20 mg PO QDAY PRN sexual activity 11/06/23 12/16/24 History tamsulosin 0.4 mg capsule 0.4 mg PO Q24H 12/16/24 12/16/24 History Allergies Allergy/AdvReac Type Severity Reaction Status Date / Time No Known Drug Allergies Allergy Verified 12/16/24 13:09 Exam Narrative Exam Narrative: Constitutional: Awake, alert, comfortable, well-appearing, nontoxic, interactive, vital signs as charted Head: Normocephalic, atraumatic Neck: Supple, normal appearance, normal range of motion, no meningeal signs, no lymphadenopathy Respiratory: No respiratory distress, breath sounds clear Cardiovascular: Regular rate and rhythm, strong and regular heart tones Abdomen: Nontender, normal bowel sounds, soft, no CVA tenderness Musculoskeletal: Normal gait, no swelling or edema Skin: No rashes or induration, no lesions, only visible skin inspected Neuro: No neurological deficits, normal sensation Psychiatric: Oriented ?3, normal affect Assessment and Plan Assessment and Plan (1) Kidney stones: Plan Cystoscopy and left ESWL scheduled with Dr. Cortez December 26, 2024.
[2024-12-16 13:46] LABS: Hematocrit 42.4 % (42.0-54.0); Hemoglobin 14.6 g/dL (14.0-18.0); Immature Granulocytes Abs Auto 0.01 10^3/uL (0.00-0.03); Immature Granulocytes Pct Auto 0.2 % (0.0-0.5); Lymphocytes Absolute Auto 1.0 10^3/uL (1.2-3.8); Mean Corpuscular HGB Conc 34.4 g/dL (29.9-35.2); Mean Corpuscular Hemoglobin 31.5 pg (25.9-34.0); Mean Corpuscular Volume 91.6 fL (80.0-94.0); Platelet Count 174 10^3/uL (150-450); Red Blood Count 4.63 10^6/uL (4.70-6.10); White Blood Count 4.6 10^3/uL (4.0-11.0)
[2024-12-16 13:57] LABS: Anion Gap 6.8; Blood Urea Nitrogen 19.0 mg/dL (7.0-18.0); Calcium 8.8 mg/dL (8.5-10.1); Carbon Dioxide 31.8 mmol/L (21.0-32.0); Chloride 108 mmol/L (98-107); Estimated GFR (African America >60 (>=60 mL/min/1.73m^2); Estimated GFR (Non-African Ame 54 (>=60 mL/min/1.73m^2); Glucose 66 mg/dL (74-106); Potassium 4.6 mmol/L (3.5-5.1); Sodium 142 mmol/L (136-145)
[2024-12-16 13:59] LABS: INR 1.06; Partial Thromboplastin Time 26.2 sec (22.3-36.2); Prothrombin Time 11.2 sec (9.0-11.6)
== END 2024-12-16 12:50 | disposition home or self-care (01) ==
LOC: PST 12:50
PROVIDERS: PCP Internal Medicine; Visit Provider Urology
DX: Z01.810 Encounter for preprocedural cardiovascular examination (principal); Z01.812 Encounter for preprocedural laboratory examination; Z01.818 Encounter for other preprocedural examination; N20.0 Calculus of kidney; R31.9 Hematuria, unspecified
CPT/HCPCS: 36415; 80048; 85025; 85610; 85730; 93005; G0463

== ENCOUNTER 2024-12-26 10:55 | Day surgery (SDC) | payer MEDICARE, SELFPAY ==
[2024-12-16 13:22] VITALS: BP 108/66; PULSE 64; TEMP 36.3; O2SAT 98; BMI 23.5
--- OUTSIDE RECORDS SUMMARY | 2024-12-18 23:59 | XMS_ITS | Continuity of Care Document ---
Author Organization [facility] Address [address] [place] [address] Care Team Providers Care Delivery Supervisor Name Role Phone Rell HAYES Primary Care Physician Encounter FT_AMBFIN [id number] Date(s): 12/18/24 - 12/18/24 [facility] [address] [place] [address] Encounter Diagnosis Elevated PSA(Discharge Diagnosis) - 12/18/24 Tremor of left hand(Discharge Diagnosis) - 12/18/24 Kidney stones(Discharge Diagnosis) - 12/18/24 BPH with urinary obstruction(Discharge Diagnosis) - 12/18/24 Shoulder pain(Discharge Diagnosis) - 12/18/24 Eczema(Discharge Diagnosis) - 12/18/24 Screen for colon cancer(Discharge Diagnosis) - 12/18/24 Discharge Disposition: Home (Routine DC) Attending Physician: Rell AHYES MD Encounter Type: Clinic Allergies, Adverse Reactions, Alerts No Known Allergies Assessment and Plan Future Appointments Appointment Date:01/06/2025 12:00:00 PM Scheduled Provider:Tabitha Perdue MD Location[place] Appoint[facility] Type:[facility] Screening Appointment Date:09/15/2025 01:00:00 PM Scheduled Provider: Location:[facility] Appointment Type:FM Medicare Wellness Subsequent Future Scheduled Tests Laboratory* HCV Antibody RFX to Quant PCR 09/16/24 Immunizations Given and Recorded Vaccine Date Status Refusal Reason influenza virus vaccine, inactivated 02/26/24 Give n influenza virus vaccine, inactivated 03/01/23 Give n influenza virus vaccine, inactivated 01/26/22 Give n influenza virus vaccine, inactivated 02/20/20 Won rded SARS-CoV-2 (COVID-19) [id number] 02/03/22 Recorded SARS-CoV-2 mRNA (tozinameran 5y-11y) vac [...] 3Result Comment: will get at pharmacy Medications Effer-K 20 mEq oral tablet, effervescent 20 mEq = 1 tab(s), Oral, BID, # 60 tab(s), Refills(s) 11, Pharmacy: [facility], 185.5, cm, 08/30/23 11:51:00 EDT, Height/Length Dosing, 75.7, kg, 08/30/23 11:51:00 EDT, Weight Dosing Start Date: 12/12/23 Status: Ordered Quantity: 60.0 Unit: tab(s) Repeat number: 12 tadalafil 20 mg Tab 20 mg = 1 tab(s), Oral, As Directed, Take 30 minutes prior to sexual relations as needed. Do not exceed 20mg in 24 Hours, # 30 tab(s), Refills(s) 5, Pharmacy: [facility], 185.5, cm, 08/30/23 11:51:00 EDT, Height/Length Dosing, 75.7, kg, 08/30/23 11:51:00 EDT, Weight Dosing Start Date: 12/12/23 Status: Ordered Quantity: 30.0 Unit: tab(s) Repeat number: 6 tamsulosin 0.4 mg Cap 0.4 mg = 1 cap(s), Oral, Daily, # 30 cap(s), Refills(s) 11, Pharmacy: [facility], 185.5, cm, 12/02/24 13:49:00 EDT, Height/Length Dosing, 75.9, kg, 12/02/24 13:49:00 EDT, Weight Dosing Start Date: 12/02/24 Status: Ordered Quantity: 30.0 Unit: cap(s) Repeat number: 12 Indications: Benign prostatic hyperplasia with lower urinary tract symptoms; Problem List Condition Confirmation Course Effective Dates Status H ealth Status Informant BPH with urinary obstruction Confirmed Active Eczema Confirmed Active Elevated PSA Confirmed Active ED (erectile dysfunction) Confirmed Active Tremor of left hand Confirmed Active Gross hematuria Confirmed Active History of kidney stones Confirmed Active Inguinal hernia 1 Confirmed Active Kidney stones Confirmed Active Lipoma of back Confirmed Active Shoulder pain Confirmed Active Screen for colon cancer Confirmed Active Screening for cardiovascular condition Confirmed Active Bulbous urethral stricture Confirmed Active [...] prosta te using ultrasound (US) guidance 03/29/11 Complet ed Colonoscopy Completed Cystoscopic insertion of ure teric stent/ in [place] Completed Social History Social History Type Response Smoking Status Never (less than 100 in lifetime);Never 1, 2 entered on: 12/18/24 Sex Male Sex Representation Male (finding) 1denies use [address] [place] [address] Discharge Instructions Patient Education 12/18/2024 13:36:57 Essential Tremor Essential Tremor A tremor is trembling or shaking that a person cannot control. Most tremors affect the hands or arms. Tremors can also affect the head, vocal cords, legs, and other parts of the body. Essential tremor is a tremor without a known cause. Usually, it occurs while a person is trying to perform an action. It tends to get worse gradually as a person ages. What are the causes? The cause of this condition is not known, but it often runs in families. What increases the risk? You are more likely to develop this condition if: ??? You have a family member with essential tremor. ??? You are 40 years of age or older. What are the signs or symptoms? The main sign of a tremor is a rhythmic shaking of certain parts of your body that is uncontrolled and unintentional. You may: ??? Have difficulty eating with a spoon or fork. ??? Have difficulty writing. ??? Nod your head up and down or side to side. ??? Have a quivering voice. The shaking may: ??? Get worse over time. ??? Come and go. ??? Be more noticeable on one side of your body. ??? Get worse due to stress, tiredness (fatigue), caffeine, and extreme heat or cold. How is this diagnosed? This condition may be diagnosed based on: ??? Your symptoms and medical history. ??? A physical exam. There is no single test to diagnose an essential tremor. However, your health care provider may order tests to rule out other causes of your condition. These may include: ??? Blood and urine tests. ??? Imaging studies of your brain, such as a CT scan or MRI. How is this treated? Treatment for essential tremor depends on the severity of the condition. ??? Mild tremors may not need treatment if they do not affect your day-to-day life. ??? Severe tremors may need to be treated using one or more of the following options: ??? Medicines. ??? Injections of a substance called botulinum toxin. ??? Procedures such as deep brain stimulation (DBS) implantation or MRI-guided ultrasound treatment. ??? Lifestyle changes. ??? Occupational or physical therapy. Follow these instructions at home: Lifestyle ??? Do not use any products that contain nicotine or tobacco. These products include cigarettes, chewing tobacco, and vaping devices, such as e-cigarettes. If you need help quitting, ask your health care provider. ??? Limit your caffeine intake as told by your health care provider. ??? Try to get 8 hours of sleep each night. ??? Find ways to manage your stress that fit your lifestyle and personality. Consider trying meditation or yoga. ??? Try to anticipate stressful situations and allow extra time to manage them. ??? If you are struggling emotionally with the effects of your tremor, consider working with a mental health provider. General instructions ??? Take hneo-cnq-kbeksez and prescription medicines only as told by your health care provider. ??? Avoid extreme heat and extreme cold. ??? Keep all follow-up visits. This is important. Visits may include physical therapy visits. Where to find more information ??? National Allen of Neurological Disorders and Stroke: www.ninds.nih.gov Contact a health care provider if: ??? You experience any changes in the location or intensity of your tremors. ??? You start having a tremor after starting a new medicine. ??? You have a tremor with other symptoms, such as: ??? Numbness. ??? Tingling. ??? Pain. ??? Weakness. ??? Your tremor gets worse. ??? Your tremor interferes with your daily life. ??? You feel down, blue, or sad for at least 2 weeks in a row. ??? Worrying about your tremor and what other people think about you interferes with your everyday life functions, including relationships, work, or school. Summary ??? Essential tremor is a tremor without a known cause. Usually, it occurs when you are trying to perform an action. ??? You are more likely to develop this condition if you have a family member with essential tremor. ??? The main sign of a tremor is a rhythmic shaking of certain parts of your body that is uncontrolled and unintentional. ??? Treatment for essential tremor depends on the severity of the condition. This information is not intended to replace advice given to you by your health care provider. Make sure you discuss any questions you have with your health care provider. Document Revised: 02/04/2022 Document Reviewed: 02/04/2022 [employer] Patient Education ?? 2023 [employer] Follow Up Care 09/16/2024 16:32:07 With:Rell HAYES MD, VEE Address: [facility] [address], [place] [address]- When:Within 1 Year(s) Patient Care team information Care Team Personnel Name: Rell HAYES MD Position: Ambulatory - Primary Care Provider? Member Role: Primary Care Physician Address: [facility] [address], [place] [address]- Telecom: Name: SHEELA DURAN Position: FT Physician Member Role: Director Medical Address: [address] [place] [address]- Telecom: Name: Nomi WILSON MD Position: FT Ambulatory - Urology Provider Member Role: Urologist Address: [address] [facility] [address] [facility] [address] [place] [address]- Telecom: Name: Trace Fu Position: FT DBC: ProFit Member Role: ProFit: Claims Followup Rep (Korin) Care Team Related Persons Name: YORDY ZINA Name: SCALES ZINA Name: SACLES ZINA Gisele Name: SCALES ZINA Gisele Name: ZINA SCALES Insurance Providers Guarantor name: RAJANI Anthony YORDY Health Plan Information #: 1 Payer: MEDICARE Payer Identifier: [id number] Member Number: [id number] Group Number: [id number] Subscriber Identifier: [id number] Relationship to Subscriber: Self Coverage Type: MEDICARE Coverage Verification Date: 24 Telecom: [phone] Address: [address] [place], [place] [address] Health Plan Information #: 2 Payer: A[employer] Payer Identifier: [id number] Member Number: [id number] Group Number: [id number] Subscriber Identifier: [id number] Relationship to Subscriber: Self Coverage Type: PRIVATE HEALTH INSURANCE Coverage Verification Date: Telecom: [phone] Address: [id number] [place] [address]
[2024-12-26] VITALS (12 sets, daily range): BP systolic 87–160; BP diastolic 56–93; PULSE 53–72; TEMP 35.9–36.2; O2SAT 94–100; BMI 22.0
--- NOTE | 2024-12-26 10:45 | XR_ITS ---
The [address] [address] Patient Name: RAJANI SCALES MRN: [id number] date: 1955 Sex: M Assigned Patient Location: [facility] Current Patient Location: Accession/Order Number: [id number] Exam Date: 12/26/2024 11:10 Report Date: 12/27/2024 00:23 At the request of: JOHANN WILSON MD Procedure: XR abdomen 1V XR abdomen 1V 12/26/2024 11:12 AM SIGNS AND SYMPTOMS: Left-sided kidney stone PROTOCOL: Frontal radiograph of the abdomen COMPARISON: 11/16/2023 FINDINGS: There is a 5 mm stone in the left renal collecting system similar to the prior exam. No radiodense right-sided renal stones. Degenerative changes are noted in the lumbar spine. There is a nonobstructive bowel gas pattern. XR/XR abdomen 1V IMPRESSION: There is a 5 mm stone in the left renal collecting system similar to the prior exam. Impression dictated by: Ashok Shepard M.D. 12/27/2024 12:23 AM Dictation Location: [place] [address] Electronically authenticated by: [id number] Y Date: 12/27/2024 00:23
--- OUTSIDE RECORDS SUMMARY | 2024-12-26 10:57 | XMS_ITS | Encounter Summary ---
Author Organization [facility] Address [address] [place] [address] Care Team Providers Care Director Personal Name Role Phone Rell Laws MD Primary Care Provider [phone] Encounter Details Date Type Department Care Team (Late st Contact Info) Description 12/19/2022 Abstract [facility] [address] [facility] [address] [place] [address] Amanda Santoyo MD [address] [facility] [address] [place] [address] Social History Tobacco Use Types Packs/Day Years [...] on filedocumented in this encounter Care Teams Director Personal Relationship Specialty Start Date End Date Rell Laws MD [address] [place] [address] PCP - General Internal Medicine 09/15/23 documented as of this encounter
--- OUTSIDE RECORDS SUMMARY | 2024-12-26 10:57 | XMS_ITS | Clinical Summary ---
Author Organization [facility] Address [address] [place] [address] Phone Care Team Providers Care Foundry Tender Name Role Phone Arelis Tomlin Primary Care [...] of Treatment Not on file Care Teams Foundry Tender Relationship Specialty Start Date End Date Arelis Tomlin APRN-CNP [address] [place] [facility]- [address] [address] PCP - General 10/07/20
--- OUTSIDE RECORDS SUMMARY | 2024-12-26 10:57 | XMS_ITS | Encounter Summary ---
Author Organization [facility] Address [address] [place] [address] Phone Care Team Providers Care Sand Miller Name Role Phone Arelis Tomlin Primary Care Provider Encounter Details Date Type Department Care Team (Late st Contact Info) Description 10/28/2020 Orders Only [facility] [address] [place] [address] Conversion, Onbase Social History Tobacco Use Types [...] on filedocumented in this encounter Care Teams Sand Miller Relationship Specialty Start Date End Date Arelis Tomlin APRN-CNP [address] [place] [facility]- [facility] [address] [facility] [place] [address] PCP - General 10/07/20 documented as of this encounter
--- OUTSIDE RECORDS SUMMARY | 2024-12-26 10:57 | XMS_ITS | Encounter Summary ---
Author Organization [facility] Address [address] [place] [address] Phone Care Team Providers Care Carpenter Cradle And Dolly Name Role Phone Arelis Tomlin Primary Care Provider Encounter Details Date Type Department Care Team (Late st Contact Info) Description 09/09/[address] [facility] [address] [place] [address] Conversion, Onbase Social History Tobacco Use Types [...] on filedocumented in this encounter Care Teams Carpenter Cradle And Dolly Relationship Specialty Start Date End Date Arelis Tomlin APRN-CNP [address] [place] [facility]- [facility] [address] [place] [address] PCP - General 10/07/20 documented as of this encounter
--- OUTSIDE RECORDS SUMMARY | 2024-12-26 10:57 | XMS_ITS | Encounter Summary ---
Author Organization [facility] Address [address] [address] Phone Care Team Providers Care Fagot Heater Helper Name Role Phone Arelis Tomlin Primary Care Provider Encounter Details Date Type Department Care Team (Late st Contact Info) Description 12/21/2020 Orders Only [facility] [address] [place] [address] Conversion, Onbase Social History Tobacco Use Types [...] on filedocumented in this encounter Care Teams Fagot Heater Helper Relationship Specialty Start Date End Date Arelis Tomlin APRN-CNP [address] [place] [facility]- [facility] [address] [facility] [address] PCP - General 10/07/20 documented as of this encounter
[2024-12-26] MEDS: CEFAZOLIN SODIUM 2 GM/50 ML D5W PREMIX IV (11:29)
--- NOTE | 2024-12-26 12:00 | P.URON_ITS ---
Urology Surgery Operative Note Operative Note Procedure Date: 12/26/24 Time Out Performed: yes Pre-op Diagnosis: 1. Gross hematuria. 2. Left nephrolithiasis Post-op Diagnosis: same as pre-op Procedures performed: 1. Cystoscopy. 2. Left ESWL. Anesthesia: General-LMA Primary Surgeon: Nomi Cortez Complications: None Estimated blood loss (mL): 2 Findings: 1. Mild bulbar urethral stricture. 2. Right lateral lobe of prostate Drains: None Indications for Procedures: This gentleman has intermittent painless gross hematuria and recurrent left nephrolithiasis. He now presents for cystoscopy and left ESWL. He has signed an informed consent after risks were explained. Some of these risks include bleeding, perinephric hematoma, infection and anesthesia to name a few. Detailed description of Procedure: The patient was brought to the Operating Room and placed on Siemens electromagnetic lithotripsy treatment table in the supine position. SCDs were placed on their lower extremities and turned on and functioning during the entire case. Timeout was done by all parties in the room. We all agreed upon the patient's identification and the planned procedures for this patient. General Anesthesia was then administered via LMA. The patient's genitalia were sterilely prepped and draped in the usual fashion. I then passed a flexible cys toscope per urethra and into the bladder. There was a mild stricture at the bulb through which I was able to pass the flexible scope. The prostate showed bilobar hypertrophy and there was very subtle bleeding from the right lateral lobe. Careful panendoscopy in the bladder revealed moderate trabeculation but no evidence of any tumors stones or lesions. No new findings were noted on retroflex of the scope. The scope was then removed. The treatment head was then brought to the patient's correct side. While using flourscopy the stone was identified and lined up into the crosshairs. We then began applying shocks. We started at a power level 2.0 and increased to a maximum power level of 3.0. Intermittent fluoroscopy revealed that the stone was very quick to fragment. We applied a total of 1000 shocks to the stone and there was no evidence of formed stone remaining. The procedure was then terminated. He was then transferred to a [facility] bed and wheeled to PACU in stable condition.
[2024-12-26] MEDS: TAMSULOSIN HCL 0.4 MG CAPSULE PO (12:25)
[2024-12-26] MEDS: POTASSIUM BICARBONATE/CIT 25 MEQ TABLET EFF PO (12:25)
--- NOTE | 2024-12-26 13:00 | PC.NURSE ---
1203 PATIENT HAS A SMALL REDDISH PURPLE LEXIS ON LEFT FLANK FROM SHOCK WAVE THERAPY
== END 2024-12-26 13:36 | disposition home or self-care (01) ==
PROVIDERS: PCP Internal Medicine; Visit Provider Urology
PROC: (CPT 50590; principal; 2024-12-26 12:00)
DX: N20.0 Calculus of kidney (principal); R31.0 Gross hematuria; N35.912 Unspecified bulbous urethral stricture, male; N32.89 Other specified disorders of bladder; N40.0 Benign prostatic hyperplasia without lower urinary tract symptoms
CPT/HCPCS: 50590; 52000; 36415; 74018; J0131; J0690; J1100; J1885; J2250; J2405; J2704; J3010